=== PATIENT | male | born 1980 | race African-American/Black ===

== ENCOUNTER 2018-09-07 07:12 | Emergency (ER) | payer OTHER ==
[~2018-09-07] VITALS: Ht 172.7 cm; Wt 71.2 kg
[2018-09-07 07:12] VITALS: BP 124/74
[2018-09-07] MEDS ORDERED: B/P MED (07:17)
[2018-09-07] MEDS ORDERED: NAPR-837 PO (07:50)
== END 2018-09-07 08:22 | disposition home or self-care (01) ==
LOC: M ED 07:12
DX: M72.2 Plantar fascial fibromatosis (principal); I10 Essential (primary) hypertension; Z72.0 Tobacco use; Z79.899 Other long term (current) drug therapy; Z88.1 Allergy status to other antibiotic agents

== ENCOUNTER 2018-11-11 21:46 | Emergency (ER) | payer OTHER ==
[~2018-11-11] VITALS: Ht 172.7 cm; Wt 75.0 kg
[~2018-11-11 21:46] MED LIST: B/P MED; NAPR-837 PO
[2018-11-11] MEDS ORDERED: LIDOCAINE 1% MDV 20ML VIAL IM ONE (22:30)
[2018-11-11 23:06] VITALS: BP 129/98
== END 2018-11-11 23:08 | disposition home or self-care (01) ==
LOC: M ED 21:46
DX: S01.81XA Laceration without foreign body of other part of head, initial encounter (principal); W22.8XXA Striking against or struck by other objects, initial encounter; Y92.013 Bedroom of single-family (private) house as the place of occurrence of the external cause; I10 Essential (primary) hypertension; D55.0 Anemia due to glucose-6-phosphate dehydrogenase [G6PD] deficiency; Z88.1 Allergy status to other antibiotic agents; F17.210 Nicotine dependence, cigarettes, uncomplicated